=== PATIENT | female | born 1985 | race Caucasian/White ===

== ENCOUNTER 2021-06-20 15:48 | Emergency (ER) | payer MEDICAID ==
[~2021-06-20] VITALS: Ht 162.6 cm; Wt 95.0 kg
[2021-06-20 16:27] LABS: BASOPHILS % 0.5 % (0.0-2.0); EOSINOPHILS % 1.5 % (0.0-5.0); HEMATOCRIT. 40.2 % (36.0-48.0); HEMOGLOBIN. 13.7 g/dL (12.0-16.0); LYMPHOCYTES % 25.1 % (20.0-50.0); MEAN CORPUSCULAR HEMOGLOBIN 29.9 pg (28.0-32.0); MEAN CORPUSCULAR VOLUME 87.9 fL (81.0-99.0); MEAN PLATELET VOLUME 8.1 fl (7.4-10.4); MONOCYTES % 8.7 % (2.0-8.0); NEUTROPHILS % 64.2 % (40.0-76.0); PLATELET 331 x1000/uL (130-400); RED BLOOD CELL COUNT 4.57 mill/uL (4.2-5.4); RED CELL DISTRIBUTION WIDTH 13.9 % (11.6-14.6)
[2021-06-20 16:41] LABS: CHLORIDE 107 mEq/L (98-107)
[2021-06-20] MEDS ORDERED: IOHEXOL-300 100 ML BOTTLE ONE (18:12)
[2021-06-20] MEDS ORDERED: CEPH500C2 MT (18:17)
[2021-06-20 18:58] VITALS: BP 134/81
== END 2021-06-20 19:01 | disposition home or self-care (01) ==
LOC: ER 15:48
DX: L03.316 Cellulitis of umbilicus (principal)
CPT/HCPCS: 36415; 74177; 80048; 85025; 85651; 86140; 99285; Q9967

== ENCOUNTER 2022-05-11 09:14 | Emergency (ER) | payer MEDICAID, OTHER ==
[~2022-05-11] VITALS: Ht 162.6 cm; Wt 90.0 kg
[~2022-05-11 09:14] MED LIST: CEPH500C2 MT
[2022-05-11 09:25] VITALS: BP 161/88
[2022-05-11] MEDS ORDERED: LIDOCAINE HCL/EPINEPHRINE 1%-EPI 1:100,000 20 ML VIAL INFIL ONE (10:30)
[2022-05-11] MEDS ORDERED: LIDOCAINE HCL/EPINEPHRINE 1%-EPI 1:100,000 50 ML VIAL INFIL NR (11:00)
[2022-05-11] MEDS ORDERED: LIDOCAINE HCL/EPINEPHRINE 1%-EPI 1:100,000 20 ML VIAL INFIL NR (11:00)
[2022-05-11] MEDS ORDERED: IBUP-2028 MT (11:13)
[2022-05-11] MEDS ORDERED: TOPUD PO (11:13)
== END 2022-05-11 11:30 | disposition home or self-care (01) ==
LOC: ER 09:14
DX: L02.411 Cutaneous abscess of right axilla (principal); Z90.49 Acquired absence of other specified parts of digestive tract
CPT/HCPCS: 10060; 99282; J3490

== ENCOUNTER 2022-05-13 10:12 | Emergency (ER) | payer MEDICAID, OTHER ==
[~2022-05-13] VITALS: Ht 162.6 cm; Wt 91.0 kg
[~2022-05-13 10:12] MED LIST changes: +IBUP-2028 MT; +TOPUD PO
[2022-05-13 12:11] VITALS: BP 152/88
== END 2022-05-13 12:14 | disposition home or self-care (01) ==
LOC: ER 10:12
DX: L02.411 Cutaneous abscess of right axilla (principal); Z90.49 Acquired absence of other specified parts of digestive tract; Z48.00 Encounter for change or removal of nonsurgical wound dressing
CPT/HCPCS: 99281